=== PATIENT | female | born 1990 | race Two or more races ===

== ENCOUNTER 2023-01-19 16:47 | Emergency (ER) | payer OTHER ==
[~2023-01-19] VITALS: Ht 167.6 cm; Wt 97.0 kg
[2023-01-19] MEDS ORDERED: LORA10TA7 PO (16:55)
[2023-01-19] MEDS ORDERED: MULT-1203 PO (16:55)
[2023-01-19] MEDS ORDERED: ALBU18HF12 IH ×2 (16:55→19:00)
[2023-01-19] MEDS ORDERED: ACETAMINOPHEN/CODEINE 300-30 MG TABLET PO ONE (17:45)
[2023-01-19] MEDS ORDERED: GuaiFENesin/D-METHORPHAN [SUGAR-FREE] 200-20MG/10 ML SYRUP UDCUP PO ONE (17:45)
[2023-01-19 17:57] LABS: COVID AG,FIA SOURCE NASOPHARYNGEAL
[2023-01-19 18:19] LABS: RAPID GROUP A STREP NEGATIVE (NEGATIVE)
[2023-01-19 18:26] LABS: INFLUENZA TYPE A NEGATIVE FOR TYPE A (NEGATIVE); INFLUENZA TYPE B NEGATIVE FOR TYPE B (NEGATIVE)
[2023-01-19] MEDS ORDERED: GUAIFDM PO (19:00)
[2023-01-19] MEDS ORDERED: IBUP-1554 PO (19:00)
[2023-01-19] MEDS ORDERED: ACET-2080 PO (19:00)
[2023-01-19 19:09] VITALS: BP 129/75
== END 2023-01-19 19:18 | disposition home or self-care (01) ==
LOC: EMS 16:47
DX: J06.9 Acute upper respiratory infection, unspecified (principal); J45.909 Unspecified asthma, uncomplicated; F17.210 Nicotine dependence, cigarettes, uncomplicated; F12.90 Cannabis use, unspecified, uncomplicated; Z88.1 Allergy status to other antibiotic agents; Z20.822 Contact with and (suspected) exposure to COVID-19
CPT/HCPCS: 87430; 87804; 99283

== ENCOUNTER 2023-04-22 03:58 | Emergency (ER) | payer OTHER ==
[~2023-04-22] VITALS: Ht 165.1 cm; Wt 200.0 kg
[~2023-04-22 03:58] MED LIST: ACET-2080 PO; ALBU18HF12 IH; GUAIFDM PO; IBUP-1554 PO; LORA10TA7 PO; MULT-1203 PO
[2023-04-22 04:02] VITALS: BP 103/66; PULSE 65; RESP 12; TEMP 98.9
[2023-04-22] MEDS ORDERED: CEPH-558 PO (04:47)
[2023-04-22] MEDS ORDERED: SULF-261 PO (04:47)
[2023-04-22] MEDS ORDERED: LIDOCAINE/PF 1% 2 ML VIAL IM ONE (05:00)
[2023-04-22] MEDS ORDERED: CefTRIAXone SODIUM 1 GM/VIAL IM ONE (05:00)
== END 2023-04-22 05:51 | disposition home or self-care (01) ==
LOC: EMS 03:59
DX: L03.115 Cellulitis of right lower limb (principal); J45.909 Unspecified asthma, uncomplicated; F17.210 Nicotine dependence, cigarettes, uncomplicated; F12.90 Cannabis use, unspecified, uncomplicated; Z88.8 Allergy status to other drugs, medicaments and biological substances
CPT/HCPCS: 99283; 96372; J0696; J3490

== ENCOUNTER 2023-09-06 20:38 | Emergency (ER) | payer OTHER ==
[~2023-09-06] VITALS: Ht 162.6 cm; Wt 90.9 kg
[~2023-09-06 20:38] MED LIST changes: +CEPH-558 PO; +SULF-261 PO
[2023-09-06 20:40] VITALS: TEMP 98.1
[2023-09-06 20:53] LABS: COVID AG,FIA SOURCE NASAL SWAB
[2023-09-06 21:08] VITALS: BP 115/79; PULSE 98; RESP 17
[2023-09-06 21:11] LABS: SARS-COV2 (COVID) ANTIGEN,FIA Negative (Negative)
[2023-09-06 21:13] LABS: INFLUENZA TYPE A NEGATIVE FOR TYPE A (NEGATIVE); INFLUENZA TYPE B NEGATIVE FOR TYPE B (NEGATIVE)
[2023-09-06] MEDS ORDERED: GUAIFDM PO (21:24)
[2023-09-06] MEDS ORDERED: ACET-2080 PO (21:24)
[2023-09-06] MEDS ORDERED: IBUP-1554 PO (21:24)
[2023-09-06] MEDS ORDERED: ALBU18HF12 IH (21:24)
[2023-09-06] MEDS ORDERED: DiphenhydrAMINE HCL 25 MG CAPSULE PO ONE (21:30)
[2023-09-06] MEDS ORDERED: GuaiFENesin/D-METHORPHAN [SUGAR-FREE] 200-20MG/10 ML SYRUP UDCUP PO ONE (21:30)
[2023-09-06] MEDS ORDERED: ACETAMINOPHEN/CODEINE 300-30 MG TABLET PO ONE (21:30)
== END 2023-09-06 21:38 | disposition home or self-care (01) ==
LOC: EMS 20:39
DX: J40 Bronchitis, not specified as acute or chronic (principal); J06.9 Acute upper respiratory infection, unspecified; R07.89 Other chest pain; F17.210 Nicotine dependence, cigarettes, uncomplicated; Z20.822 Contact with and (suspected) exposure to COVID-19
CPT/HCPCS: 87804; 99284; Z7502; Z7610

== ENCOUNTER 2023-09-30 19:44 | Emergency (ER) | payer OTHER ==
[~2023-09-30] VITALS: Ht 165.1 cm; Wt 92.3 kg
[~2023-09-30 19:44] MED LIST changes: -CEPH-558 PO; -SULF-261 PO
[2023-09-30 19:57] VITALS: BP 127/73; PULSE 90; RESP 16; TEMP 97.2
== END 2023-09-30 21:52 | disposition left against medical advice (07) ==
LOC: EMS 19:45
DX: M54.2 Cervicalgia (principal); R53.83 Other fatigue; R51.9 Headache, unspecified; Z53.21 Procedure and treatment not carried out due to patient leaving prior to being seen by health care provider
CPT/HCPCS: 99281; Z7502

== ENCOUNTER 2024-04-19 07:17 | Emergency (ER) | payer OTHER ==
[~2024-04-19] VITALS: Ht 154.9 cm; Wt 95.9 kg
[~2024-04-19 07:17] MED LIST changes: -ACET-2080 PO; -ALBU18HF12 IH; +AMOX500C2 PO; -GUAIFDM PO; -IBUP-1554 PO; -LORA10TA7 PO; -MULT-1203 PO
[2024-04-19] MEDS: PredniSONE 20 MG TABLET PO ONE (08:06)
[2024-04-19 08:20] VITALS: PULSE 88; RESP 16; O2SAT 97
[2024-04-19] MEDS: IPRATROPIUM BROMIDE 0.5 MG/2.5 ML NEB SOLUTION NEB ONE (08:20)
[2024-04-19] MEDS: ALBUTEROL SULFATE 2.5 MG/0.5 ML NEB SOLUTION NEB ONE (08:20)
[2024-04-19 08:22] VITALS: PULSE 88; RESP 18; O2SAT 98
[2024-04-19 08:30] LABS: INFLUENZA A-RTPCR,COMBO NEGATIVE (NEGATIVE); INFLUENZA B-RTPCR,COMBO NEGATIVE (NEGATIVE); RESPIRATORY SYNCYTIAL VRS-PCR NEGATIVE (NEGATIVE); SARS COVID19 RTPCR, COMBO NEGATIVE (NEGATIVE)
[2024-04-19] MEDS ORDERED: PRED-554 PO (08:53)
[2024-04-19] MEDS ORDERED: ALBU0.8311 NEB (08:54)
[2024-04-19 08:55] VITALS: BP 118/72; PULSE 80; RESP 18; TEMP 98.2
== END 2024-04-19 09:01 | disposition home or self-care (01) ==
LOC: EMS 07:17
DX: J45.901 Unspecified asthma with (acute) exacerbation (principal); F17.210 Nicotine dependence, cigarettes, uncomplicated; Z98.890 Other specified postprocedural states; Z88.8 Allergy status to other drugs, medicaments and biological substances; Z20.822 Contact with and (suspected) exposure to COVID-19
CPT/HCPCS: 99284; 0241U; 71045; 94640; J7512; 99283; J7613

== ENCOUNTER 2024-05-29 05:39 | Emergency (ER) | payer OTHER ==
[~2024-05-29] VITALS: Ht 165.1 cm; Wt 97.3 kg
[~2024-05-29 05:39] MED LIST changes: +ALBU0.8311 NEB; -AMOX500C2 PO; +PRED-554 PO
[2024-05-29 05:50] VITALS: TEMP 99.5
[2024-05-29 06:03] LABS: COVID AG,FIA SOURCE NASAL SWAB
[2024-05-29 06:06] LABS: BASOPHILS % (AUTO) 0.5 % (0.0-2.0); EOSINOPHILS % (AUTO) 1.5 % (1.0-6.0); HEMATOCRIT 43.2 % (36-46); HEMOGLOBIN 14.3 g/dL (12.0-16.0); LYMPHOCYTES % (AUTO) 9.6 % (22.0-44.0); MEAN CORPUSCULAR HEMOGLOBIN 30.2 pg (26.0-34.0); MEAN CORPUSCULAR HGB CONC 33.1 G/dL (31.0-37.0); MEAN CORPUSCULAR VOLUME 91 fL (80-100); MONOCYTES % (AUTO) 9.5 % (2.0-9.0); NEUTROPHILS % (AUTO) 78.9 % (40.0-70.0); PLATELET COUNT (AUTO) 270 K/uL (150-450); RED BLOOD CELL COUNT(AUTO) 4.75 MIL/uL (4.00-5.20); RED CELL DISTRIBUTION WIDTH 13.5 % (11.5-14.5); WHITE BLOOD COUNT (AUTO) 10.1 K/uL (4.5-11.0)
[2024-05-29 06:16] LABS: ANION GAP 12 mmol/L (8-16); CALCIUM, TOTAL 8.4 mg/dL (8.8-10.5); CARBON DIOXIDE 23 mmol/L (22-29); CHLORIDE 103 mmol/L (98-107); CREATININE 0.81 mg/dL (0.60-1.30); GLOMERULAR FILTR. RATE CALC > 60 mL/min (>60); GLUCOSE,RANDOM 85 mg/dL (70-110); POTASSIUM 4.1 mmol/L (3.5-5.1); SODIUM SERUM 138 mmol/L (136-145); UREA NITROGEN, BLOOD 10 mg/dL (7-18)
[2024-05-29] MEDS: ALBUTEROL SULFATE HFA 90 MCG/PUFF 8 GM INHALER IH ONE (06:25)
[2024-05-29] MEDS: BENZONATATE 100 MG CAPSULE PO ONE (06:25)
[2024-05-29] MEDS: PredniSONE 20 MG TABLET PO ONE (06:25)
[2024-05-29 06:31] LABS: INFLUENZA TYPE A NEGATIVE FOR TYPE A (NEGATIVE); INFLUENZA TYPE B NEGATIVE FOR TYPE B (NEGATIVE)
[2024-05-29 06:32] LABS: SARS-COV2 (COVID) ANTIGEN,FIA Negative (Negative)
[2024-05-29] MEDS ORDERED: BENZ-227 PO (06:44)
[2024-05-29] MEDS ORDERED: PRED-554 PO (06:44)
[2024-05-29 08:00] VITALS: BP 113/74; PULSE 91; RESP 16; O2SAT 98
== END 2024-05-29 08:35 | disposition home or self-care (01) ==
LOC: EMS 05:39
DX: J02.8 Acute pharyngitis due to other specified organisms (principal); J45.909 Unspecified asthma, uncomplicated; F17.210 Nicotine dependence, cigarettes, uncomplicated; Z98.890 Other specified postprocedural states; Z88.8 Allergy status to other drugs, medicaments and biological substances; Z20.822 Contact with and (suspected) exposure to COVID-19
CPT/HCPCS: 99283; 87426; 80048; 84703; 85025; 87430; 87804; 36415; 94640; J7512; J3535

== ENCOUNTER 2024-08-05 15:32 | Emergency (ER) | payer OTHER ==
[~2024-08-05] VITALS: Ht 165.1 cm; Wt 81.8 kg
[~2024-08-05 15:32] MED LIST changes: +BENZ-227 PO
[2024-08-05 15:45] VITALS: BP 139/91; PULSE 96; RESP 18; TEMP 96; O2SAT 99
== END 2024-08-05 18:52 | disposition left against medical advice (07) ==
LOC: EMS 15:32
DX: Z11.4 Encounter for screening for human immunodeficiency virus [HIV] (principal); Z53.21 Procedure and treatment not carried out due to patient leaving prior to being seen by health care provider

== ENCOUNTER 2024-08-19 20:41 | Emergency (ER) | payer OTHER ==
[~2024-08-19] VITALS: Ht 165.1 cm; Wt 96.4 kg
[2024-08-19 21:12] VITALS: BP 125/80; PULSE 78; RESP 18; TEMP 98; O2SAT 99
[2024-08-19 21:43] LABS: APPEARANCE,URINE CLEAR (CLEAR); BILIRUBIN,URINE NEGATIVE (NEGATIVE); COLOR,URINE COLORLESS (YELLOW); GLUCOSE, URINE (UA) NEGATIVE (NEGATIVE); KETONES,URINE NEGATIVE (NEGATIVE); OCCULT BLOOD,URINE NEGATIVE (NEGATIVE); PH,URINE 5.5 (5.0-8.0); PROTEIN,URINE NEGATIVE (NEGATIVE); SPECIFIC GRAVITIY, URINE 1.005 (1.003-1.030); UROBILINOGEN,URINE <=1.0 mg/dL (<=1.0)
[2024-08-19 21:54] LABS: BACTERIA,URINE None Seen /HPF (None Seen); LEUKOCYTE ESTERASE ,URINE NEGATIVE (NEGATIVE); NITRATE,URINE NEGATIVE (NEGATIVE); RBC,URINE None Seen /HPF (0-2); SQUAMOUS EPITHELIAL CELL,UR Few /LPF (None Seen); WBC,URINE 0-2 /HPF (0-5)
[2024-08-19] MEDS: ACETAMINOPHEN 500 MG TABLET PO ONE (23:16)
[2024-08-19] MEDS: IBUPROFEN 600 MG TABLET PO ONE (23:16)
== END 2024-08-19 23:27 | disposition home or self-care (01) ==
LOC: EMS 20:41
DX: S60.222A Contusion of left hand, initial encounter (principal); J45.909 Unspecified asthma, uncomplicated; F17.210 Nicotine dependence, cigarettes, uncomplicated; Z88.1 Allergy status to other antibiotic agents; Z88.8 Allergy status to other drugs, medicaments and biological substances; Z79.52 Long term (current) use of systemic steroids; W23.0XXA Caught, crushed, jammed, or pinched between moving objects, initial encounter; Y93.89 Activity, other specified; Y92.89 Other specified places as the place of occurrence of the external cause; Y99.8 Other external cause status
CPT/HCPCS: 81001; 84703; 99284; 73130-TC; Z7502

== ENCOUNTER → 2024-10-07 | Emergency (ER) | payer OTHER ==
[~2024-10-07] VITALS: Ht 165.1 cm; Wt 97.7 kg
[2024-10-07 06:15] VITALS: TEMP 98.5
[2024-10-07] MEDS: PredniSONE 20 MG TABLET PO ONE (06:32)
[2024-10-07] MEDS: ALBUTEROL SULFATE 2.5 MG/0.5 ML NEB SOLUTION NEB ONE (06:37)
[2024-10-07] MEDS: IPRATROPIUM BROMIDE 0.5 MG/2.5 ML NEB SOLUTION NEB ONE (06:37)
[2024-10-07 06:40] VITALS: PULSE 85; RESP 20; O2SAT 95
[2024-10-07] MEDS: ALBUTEROL SULFATE HFA 90 MCG/PUFF 8 GM INHALER IH ONE (06:46)
[2024-10-07 06:53] VITALS: PULSE 88; RESP 20; O2SAT 100
[2024-10-07 07:06] VITALS: BP 102/69; PULSE 98; RESP 15; O2SAT 98
== END | disposition home or self-care (01) ==
LOC: EMS 06:13
DX: J45.901 Unspecified asthma with (acute) exacerbation (principal); F17.210 Nicotine dependence, cigarettes, uncomplicated; Z88.1 Allergy status to other antibiotic agents; Z88.8 Allergy status to other drugs, medicaments and biological substances; Z79.52 Long term (current) use of systemic steroids
CPT/HCPCS: 99283; 94640; J7512; J3535